=== PATIENT | female | born 1995 | race Caucasian/White ===

== ENCOUNTER 2024-01-02 12:00 | Emergency (ER) | payer MEDICAID ==
[~2024-01-02] VITALS: Ht 175.3 cm; Wt 145.0 kg
[2024-01-02 12:12] VITALS: BP 127/85; PULSE 95; RESP 16; TEMP 98.1; O2SAT 98
== END 2024-01-02 14:36 | disposition home or self-care (01) ==
LOC: ER 12:01
DX: S93.402A Sprain of unspecified ligament of left ankle, initial encounter (principal); Z88.5 Allergy status to narcotic agent; X50.1XXA Overexertion from prolonged static or awkward postures, initial encounter; Y93.89 Activity, other specified; Y92.89 Other specified places as the place of occurrence of the external cause; Y99.8 Other external cause status
CPT/HCPCS: 73610; 99283; L4360